=== PATIENT | female | born 1940 | race Caucasian/White ===

== ENCOUNTER 2016-07-15 15:26 | Emergency (ER) | payer MEDICARE, OTHER ==
[~2016-07-15 15:26] MED LIST: ALBUTEROL INH; AMB10 PO; AMIT25 PO; BREO ELLIPTA INH; CEFT5 PO; CLIN200 PO; COZAAR100 MG PO; CRESTOR10 PO; CRESTOR20 MG PO; DSS PO; FERROUS SULF325 M1 PO; FLEXERIL5 MG PO; GLUCOV5 PO; GLUCPH8 PO; KLOR-CON M2020 MEQ PO; L40 PO; L80 PO; LANTUSCART SC; LEVAQUIN750 MG PO; LEVEMFLXPN SC; LEVEMIR SC; LEXAPRO10 PO; LOP25 PO; LOP50 PO; LORTAB10 PO; MEDROLPAK4 PO; MIRALAXPKT PO; MUCINEX600 MG PO; NATURA2 OP; NEXIUM40 PO; NITROSTAT0.4 MG SL; NORCO1 TAB PO; NORV10 PO; NOVOLOGMIX SC; NOVOPEN SC; P10 PO; PERCOCET1 TA3 PO; PERCOCET1 TA4 PO; PLAVIX PO; PR25 PO; PREDFORTE OPH; PRIN10 PO; PROAIR HFA INH; PROZAC PO; SEROQUEL25 PO; SEROQUEL50 MG PO; SINGULAIR1 PO; SPIRIVA INH; SYMBICORT 160/41 INH INH; T300 PO; TOVIAZ8 MG PO; TRAZ100 PO; X5 PO; ZETIA PO
[2016-07-15 15:51] LABS: BASOPHILS 0.4 %; BASOPHILS ABSOLUTE 0.03 10/3/uL (0.0-0.16); EOSINOPHILS 4.9 %; EOSINOPHILS ABSOLUTE 0.39 10/3/uL (0.0-0.53); ER CBC TAT 0 Hrs 03 Mins; IMMATURE GRANULOCYTES 0.1 %; IMMATURE GRANULOCYTES ABSOLUTE 0.01 10/3/uL (0.0-0.11); LYMPHOCYTES 29.1 %; LYMPHOCYTES ABSOLUTE 2.29 10/3/uL (0.67-4.30); MEAN PLATELET VOLUME 9.9 fL (9.2-13.0); MONOCYTES 8.6 %; MONOCYTES ABSOLUTE 0.68 10/3/uL (0.21-1.20); NEUTROPHILS 56.9 %; NEUTROPHILS ABSOLUTE 4.48 10/3/uL (2.02-8.40); PLATELET COUNT 260 10/3/uL (150-400); WHITE BLOOD CELLS 7.9 10/3/uL (4.5-10.5)
[2016-07-15 15:55] LABS: HEMATOCRIT 47.5 % (36.0-48.0); HEMOGLOBIN 17.1 g/dL (12.0-16.0); MANUAL DIFF NO %; MEAN CORPUSCULAR VOLUME 86.1 fL (80-100); RBC DISTRIBUTION WIDTH 12.7 % (12.0-16.0); RED CELL COUNT 5.52 10/6/uL (4.0-5.6)
[2016-07-15 16:02] LABS: PARTIAL THROMBO TIME 34.5 SEC (22.5-37.2); PROTIME (NOT ORD) 12.9 SEC (12.0-14.5)
[2016-07-15 16:08] LABS: BUN (BLOOD UREA NITROGEN) 17 MG/DL (6-23); CALCIUM, SERUM 10.1 MG/DL (8.5-10.4); CHEST PAIN PROFILE TAT 0 Hrs 20 Mins; CHLORIDE, SERUM 97 MMOL/L (96-112); CO2 (CARBON DIOXIDE) 28 MMOL/L (24-34); CREATININE 0.96 MG/DL (0.55-1.02); GFR AFRICAN AMERICAN 68 ML/MIN (>=60); GFR NON AFRICAN AMERICAN 58 ML/MIN (>=60); GLUCOSE, SERUM 125 MG/DL (60-99); POTASSIUM, SERUM 4.6 MMOL/L (3.5-5.3); SODIUM, SERUM 130 MMOL/L (135-148); TROPONIN I <0.02 NG/ML (<0.05)
[2016-07-15 18:08] LABS: ASCORBIC ACID (UR NOT ORDER) NEG (NEG); BILIRUBIN, URINE NEGATIVE (NEG); ER URINALYSIS TAT 0 Hrs 24 Mins; KETONE, URINE NEGATIVE (NEG); LEUKOCYTE ESTERASE(NOT OR NEG (NEG); NITRITE (URINE) NEG (NEG); WBC (NOT ORDERED) (RFLEX) 1 (0-5)
== END 2016-07-15 18:28 | disposition home or self-care (01) ==
LOC: ER 15:26
PROVIDERS: Emergency Medicine; Nurse Practitioner
DX: I10 Essential (primary) hypertension (principal); F17.200 Nicotine dependence, unspecified, uncomplicated; E11.9 Type 2 diabetes mellitus without complications; J45.909 Unspecified asthma, uncomplicated; J44.9 Chronic obstructive pulmonary disease, unspecified; Z95.5 Presence of coronary angioplasty implant and graft; Z95.1 Presence of aortocoronary bypass graft; I25.2 Old myocardial infarction; Z79.899 Other long term (current) drug therapy; Z79.84 Long term (current) use of oral hypoglycemic drugs; Z79.52 Long term (current) use of systemic steroids
CPT/HCPCS: 71020; 80048; 81001; 83735; 84484; 85025; 85610; 85730; 93005; 99284